=== PATIENT | male | born 2000 | race African-American/Black ===

== ENCOUNTER 2021-10-13 08:11 | Emergency (ER) | payer OTHER ==
[~2021-10-13] VITALS: Ht 165.1 cm; Wt 68.0 kg
[2021-10-13 08:17] VITALS: BP 105/56
[2021-10-13] MEDS ORDERED: KETOROLAC 30MG/ML VIAL IM ONE (09:30)
== END 2021-10-13 09:44 | disposition home or self-care (01) ==
LOC: ER 08:21
DX: S80.02XA Contusion of left knee, initial encounter (principal); S20.219A Contusion of unspecified front wall of thorax, initial encounter; S00.83XA Contusion of other part of head, initial encounter; V43.52XA Car driver injured in collision with other type car in traffic accident, initial encounter; Y93.89 Activity, other specified; Y92.488 Other paved roadways as the place of occurrence of the external cause
CPT/HCPCS: 71045; 73562; 93005; 99285